=== PATIENT | male | born 1955 | race Caucasian/White ===

== ENCOUNTER 2017-04-18 01:29 | Emergency (ER) | payer SELFPAY ==
[~2017-04-18] VITALS: Ht 165.1 cm; Wt 86.2 kg
[2017-04-18 02:47] LABS: AMPHETAMINE QUAL UR NONE DETECTED (NEG <=1000)
[2017-04-18 03:21] VITALS: BP 142/94
== END 2017-04-18 03:21 | disposition home or self-care (01) ==
LOC: ED 01:29
PROVIDERS: Emergency Medicine
DX: F16.10 Hallucinogen abuse, uncomplicated (principal); R46.89 Other symptoms and signs involving appearance and behavior

== ENCOUNTER 2018-06-13 09:59 | Emergency (ER) | payer MEDICAID ==
[~2018-06-13] VITALS: Ht 165.1 cm; Wt 90.7 kg
[2018-06-13 10:01] VITALS: Ht 165.1 cm; Wt 90.7 kg
[2018-06-13 11:05] LABS: CALCIUM 8.8 mg/dL (8.5-10.1); CARBON DIOXIDE 27.2 mmol/L (21-32); CHLORIDE SERUM 107 mmol/L (98-107); CREATININE SERUM 0.9 mg/dL (0.7-1.3); GFR1 > 60 mL/min; GLUCOSE SERUM 124 mg/dL (74-106); POTASSIUM SERUM 3.9 mmol/L (3.5-5.1); SODIUM SERUM 141 mmol/L (136-145)
[2018-06-13 11:27] LABS: BASOPHIL % 0.9 % (0-2); PLATELET COUNT 268 x10^3mcL (130-400); RED CELL DISTRIBUTION WIDTH 14.4 % (11.5-14.5)
[2018-06-13 12:18] VITALS: BP 127/72
== END 2018-06-13 12:19 | disposition home or self-care (01) ==
LOC: ED 09:59
PROVIDERS: Emergency Medicine
DX: S22.42XA Multiple fractures of ribs, left side, initial encounter for closed fracture (principal); S91.302A Unspecified open wound, left foot, initial encounter; W22.03XA Walked into furniture, initial encounter; Y93.89 Activity, other specified; Y92.89 Other specified places as the place of occurrence of the external cause; Y99.8 Other external cause status
CPT/HCPCS: J1885